=== PATIENT | male | born 1945 | race Hispanic/Latino ===

== ENCOUNTER 2016-11-11 06:36 | Observation (INO) | payer MEDICARE ==
[2016-11-11] MEDS ORDERED: NACL 0.9% 500 ML 500 ML IV SCH (07:00)
[2016-11-11 07:21] LABS: Basophils % (Auto) 0.5 % (0.0-1.8); Hematocrit 45.2 % (35.5-45.6); Mean Corpuscular HGB Conc 33 % (32-34); Mean Corpuscular Hemoglobin 30 pg (28-32); Mean Corpuscular Volume 92 fl (84-94); Platelet Count 171 K/mm3 (140-440); Red Blood Count 4.92 M/mm3 (3.65-5.03); Red Cell Distribution Width 13.5 % (13.2-15.2)
[2016-11-11 07:33] LABS: INR 0.97 (0.87-1.13)
[2016-11-11 07:42] LABS: Anion Gap 15 mmol/L; Blood Urea Nitrogen 16 mg/dL (9-20); Calcium 9.1 mg/dL (8.4-10.2); Carbon Dioxide 30 mmol/L (22-30); Chloride 94.1 mmol/L (98-107); Glucose 97 mg/dL (75-100); Potassium 4.1 mmol/L (3.6-5.0); Sodium 135 mmol/L (137-145)
[2016-11-11] MEDS ORDERED: HEPARIN/NS 5000 UNIT/500ML(CATH LAB) 1,000 ML IR ONE (09:31)
[2016-11-11] MEDS ORDERED: CALAN ONE (09:31)
[2016-11-11] MEDS ORDERED: NITROGLYCERIN SYRINGE 3 ML ONE (09:31)
[2016-11-11] MEDS ORDERED: HEPARIN 10,000 UNITS/10 ML ONE ×2 (09:33→10:31)
[2016-11-11] MEDS ORDERED: XYLOCAINE 2% INFILTRATI ONE (09:34)
[2016-11-11] MEDS: VERSED ONE ×2 (09:43→09:59)
[2016-11-11] MEDS: SUBLIMAZE ONE ×2 (09:43→09:59)
[2016-11-11] MEDS: HEPARIN 10,000 UNITS/10 ML ONE ×3 (09:44→11:02)
[2016-11-11] MEDS: XYLOCAINE 2% INFILTRATI ONE ×2 (09:44→10:03)
[2016-11-11] MEDS ORDERED: HEPARIN/NS 5000 UNIT/500ML(CATH LAB) 500 ML IR ONE (10:07)
[2016-11-11] MEDS ORDERED: EFFIENT PO ONE (10:22)
[2016-11-11] MEDS ORDERED: ALUM-MAG HYDROX-SIMETH 200-200-20MG/5ML ONE (10:22)
[2016-11-11] MEDS ORDERED: ZOFRAN IV PRN (10:39)
--- NOTE | 2016-11-11 10:48 | Event Note ---
Date: 11/11/16 Outpatient cardiac cath followed by PCI of the mid circ. A 4.5mm BM stent deployed. We will admit overnight only for post PCI observation. Discharge tomorrow am. On discharge, add Effient 10mg and Imdur 30mg to regimen. Due to baseline bradycardia, we will hold off on betablocker at this time.
[2016-11-11] MEDS ORDERED: ULTRAM PO PRN (11:00)
[2016-11-11] MEDS ORDERED: NACL 0.9% 1000 ML 1,000 ML IV SCH (11:00)
--- NOTE | 2016-11-11 11:03 | Cardiac Catherization Report ---
CARDIAC CATHETERIZATION AND CORONARY ANGIOPLASTY REASON FOR PROCEDURE: Unstable angina, abnormal thallium stress test, abnormal coronary CTA. PROCEDURE: The patient was prepped and draped in a sterile fashion after informed consent. The right radial artery was entered using Seldinger technique followed by placement of a 6-Bulgarian hydrophilic sheath. Routine radial cocktail was administered via the sheath. A #3.5 left Mary catheter was used for left coronary angiography. A #4 right Mary was used for right coronary angiography. CORONARY ANGIOGRAPHY: The angiograms were reviewed. The left main coronary artery contained mild irregularities. The left anterior descending artery contained mild to moderate coronary calcification in its proximal segment, associated with diffuse mild atherosclerosis. Following a medium sized mid diagonal branch, there was a 30-40% stenosis of the mid LAD. The circumflex artery was a large caliber vessel, with mild diffuse ectasia. This vessel contained a focal, 75-80% stenosis of its mid segment. The right coronary artery was dominant. This vessel contained an eccentric, 30-40% irregular plaque stenosis of its mid segment. CORONARY ANGIOPLASTY: After review of the angiograms, ad hoc angioplasty and stenting of the mid circumflex artery was recommended. We selected a #3.5 left Mary guiding catheter and advanced to the left coronary ostium. A 0.014 inch [employer] 50 guidewire was then directed into the circumflex, across the stenotic segment. In the primary stenting maneuver, we deployed a 4.5 x 13 mm Ultra bare metal stent to cover the entire lesional segment. The stent was deployed to optimal pressures. Following stenting, the catheters and the wires were removed. Post-intervention angiograms revealed an excellent angiographic result, 0 residual stenosis at the treated site, and maintenance of excellent KIMI 3 flow down the circumflex. The procedure was well tolerated by the patient and there were no complications. The catheters and the wires were removed, hemostasis achieved at the radial site using manual compression. He was returned to the postprocedure unit in stable condition. There were no complications. CONCLUSION: 1. Multivessel coronary artery disease, with severe stenosis of the mid circumflex artery. 2. Successful ad hoc angioplasty and stenting of the mid circumflex, excellent angiographic results following deployment of a 4.5 mm bare metal stent. The patient will be recommended for aggressive risk factor modification and medical therapy for the nonobstructive disease of the LAD and circumflex systems. Echocardiography will be recommended for left ventricular function and valvular function assessment. JOB# [id number] ERUM/GRICEL
[2016-11-11] MEDS ORDERED: NACL 0.9% 1000 ML 1,000 ML ONE (12:22)
[2016-11-11] MEDS: IMDUR PO SCH (12:31)
--- NOTE | 2016-11-11 15:57 | Admit Criteria Form ---
Admission Criteria Documentation: TELEMETRY CARE Telemetry Admission Guidelines (Place 'X' for any and all applicable criteria): Admission to telemetry [A] may be indicated for ANY ONE of the following(1)(2)(3 )(4)(5): [ X]I. Cardiac disease, including ANY ONE of the following (9)(10)(11)(12)( 13): [ ]a) Postacute [place] [ ]b) Low-risk patients with ST-segment elevation [place] who have undergone successful percutaneous coronary intervention [ ]c) Unstable angina [ ]d) Suspected [place] (until it is ruled out) [ ]e) Post cardiac surgery (first 48 to 72 hours unless complications occur) [ ]f) Acute arrhythmias (including significant tachycardia or bradycardia) [B] [ ]g) Firing of an implantable cardioverter defibrillator [C] [ ]h) Suspected pacemaker or implantable cardioverter defibrillator malfunction (10) [ ]i) New administration or adjustment of an antiarrhythmic drug [D ] [ ]j) Child admitted for acute congestive heart failure [ ]j) Long QT syndrome [ ]k) Advanced heart block (eg, second-degree Mobitz type II, third- degree heart block) [ ]l) Acute myocarditis or pericarditis [X ]m) Short-term (ambulatory or inpatient) monitoring after a cardiac procedure as indicated by ANY ONE of the following [E]: [ ]i) Electrophysiologic studies [X ]ii) Percutaneous coronary intervention with stent placement [ ]iii) Pacemaker placement with cardiac conduction defect [ ]iv) Implantable cardiac defibrillator placement [ ]II. Drug overdose or poisoning with substance that causes arrhythmias or QT prolongation (eg, phenothiazines, sympathomimetic agents, cyclic antidepressants, digitalis, antiarrhythmic drugs)(15) [ ]III. Short-term (ambulatory or inpatient) monitoring after therapeutic or diagnostic procedure requiring conscious sedation or anesthesia (eg, endoscopy, elective cardioversion) [ ]IV. Acute cerebrovascular even[F](18) [ ]V. Massive blood transfusion (eg, at least 10 units of packed red blood cells in 24 hours) [ ]. Variceal bleeding after endoscopy, sclerotherapy, or IV vasopressin [ ]VII. Uncorrected electrolyte abnormalities associated with an increased risk of dangerous arrhythmia [G]; examples include [ ]a) Hyperkalemia with attributable ECG changes [ ]b) Potassium greater than 6.5 mmol/L (mEq/L) in a patient without history of chronic renal disease [ ]c) Prolonged QT attributed to hypokalemia, hypomagnesemia, or hypocalcemia [ ]VIII.Unexplained syncope or other neurologic event suspected of being due to arrhythmia due to a finding that increases risk; examples include(19)(20)(21): [ ]a) High-risk ECG findings (eg, bifascicular block, bradycardia, abnormal QT interval, ventricular pre- excitation) [ ]b) History of previous syncope due to arrhythmia [ ]c) Abnormal ventricular function (eg, reduced ejection fraction ) [ ]d) Exertional or supine syncope [ ]e) Concerning syncope characteristics (eg, sudden loss of consciousness without prodrome) [ ]f) Family history of sudden [ ]g) Use of arrhythmogenic medication [ ]h) Suspected cardiac ischemia [ ]i) Known channelopathy (eg, long QT syndrome, Brugada syndrome, or catecholaminergic paroxysmal ventricular tachycardia) [ ]j) Known structural heart disease (eg, hypertrophic cardiomyopathy , severe valvular disease) [ ]k) Palpitations preceding syncope The original [facility] content created by [facility] has been revised. The portions of the content which have been revised are identified through the use of italic text or in bold, and [employer] [email or web address] has neither reviewed nor approved the modified material. All other unmodified content is copyright [facility]. Please see references footnoted in the original [facility] edition 2016 Admission Criteria Met: Yes
[2016-11-11] MEDS ORDERED: AMBIEN PO PRN (22:00)
[2016-11-11] MEDS ORDERED: NON-FORMULARY (Rosuvastatin Calcium [Crestor] 40 MG) PO SCH (22:00)
[2016-11-12 07:27] LABS: Basophils % (Auto) 0.4 % (0.0-1.8); Eosinophils % (Auto) 2.3 % (0.0-4.3); Hematocrit 38.1 % (35.5-45.6); Hemoglobin 12.9 gm/dl (11.8-15.2); Mean Corpuscular HGB Conc 34 % (32-34); Mean Corpuscular Hemoglobin 31 pg (28-32); Mean Corpuscular Volume 91 fl (84-94); Platelet Count 147 K/mm3 (140-440); Red Cell Distribution Width 12.9 % (13.2-15.2); White Blood Count 7.3 K/mm3 (4.5-11.0)
[2016-11-12 07:40] LABS: Creatine Kinase MB 3.6 ng/mL (0.0-4.0)
[2016-11-12 07:43] LABS: Anion Gap 17 mmol/L; BUN/Creatinine Ratio 16.25; Blood Urea Nitrogen 13 mg/dL (9-20); Calcium 8.1 mg/dL (8.4-10.2); Carbon Dioxide 24 mmol/L (22-30); Chloride 97.8 mmol/L (98-107); Creatine Kinase 129 units/L (55-170); Glucose 95 mg/dL (75-100); Potassium 3.6 mmol/L (3.6-5.0); Sodium 135 mmol/L (137-145)
--- NOTE | 2016-11-12 08:58 | XRay Report ---
AP CHEST: AP view of the chest demonstrates a normal mediastinal and cardiac contour with clear lungs and normal bony and soft tissue structures. IMPRESSION: Normal AP chest.
[2016-11-12 09:00] VITALS: BP 115/69
[2016-11-12] MEDS ORDERED: BABY ASPIRIN PO SCH (10:00)
[2016-11-12] MEDS ORDERED: EFFIENT PO SCH (10:00)
[2016-11-12] MEDS ORDERED: MAXZIDE-25 PO SCH (10:00)
[2016-11-12] MEDS: IMDUR PO SCH (10:17)
--- NOTE | 2016-11-12 10:19 | Short Stay Summary ---
Short Stay Documentation Date of service: 11/12/16 - History H&P: obtained from office - Allergies and Medications Current Medications: Allergies No Known Allergies Allergy (Verified 11/11/16 06:57) Home Medications Medication Instructions Recorded Confirmed Last Taken Type Aspirin EC [Aspirin Enteric Coated 81 mg PO QDAY 11/11/16 11/11/16 11/10/16 History TAB] Rosuvastatin Calcium [Crestor] 40 mg PO QHS 11/11/16 11/11/16 11/10/16 History Triamterene/Hydrochlorothiazid 1 tab PO QDAY 11/11/16 11/11/16 11/11/16 05:30 History [Triamterene-Hctz 37.5-25 mg Tb] Active Medications Aspirin (Baby Aspirin) 81 mg PO QDAY [facility] Atorvastatin Calcium (Lipitor) 80 mg PO QHS [facility] Last Admin: 11/11/16 21:48 Dose: 80 mg Isosorbide Mononitrate (Imdur) 30 mg PO QDAY [facility] Last Admin: 11/11/16 12:31 Dose: 30 mg Ondansetron HCl (Zofran) 4 mg IV Q8H PRN PRN Reason: N/V unrelieved by Reglan Prasugrel (Effient) 10 mg PO QDAY SANYA Tramadol HCl (Ultram) 50 mg PO Q4H PRN PRN Reason: Pain, Mild (1-3) Triamterene/HCTZ (Maxzide-25) 1 each PO QDAY SANYA Zolpidem Tartrate (Ambien) 5 mg PO QHS PRN PRN Reason: Sleep - Physical exam General appearance: no acute distress HEENT: PERRLA Lungs: Clear to auscultation Heart: Normal S1, Normal S2 - Brief post op/procedure progress note Procedure: Outpatient cardiac cath followed by PCI of the mid circ. A 4.5mm BM stent deployed. - Hospital course Hospital course: Stable overnight observation. Effient 10mg and Imdur 30mg added to home regimen. Due to baseline bradycardia, we will hold off on betablocker at this time. - Disposition Condition at discharge: Good Disposition: DISCHARGED TO HOME OR SELFCARE Short Stay Discharge Plan Activity: advance as tolerated, other (POST CARDIAC CATH INSTRUCTIONS) Diet: low fat, low cholesterol, low salt Follow up with: VIMAL DESAI MD [Primary Care Provider] - 7 Days ESTHER CASTRO MD [Staff Physician] - 7 Days Forms: CardCat PCI D/C Instructions Prescriptions: ISOSORBIDE MONOnitrate [Imdur ER] 30 mg PO QDAY #30 tablet Prasugrel [Effient] 10 mg PO QDAY #30 tablet
== END 2016-11-12 11:04 | disposition home or self-care (01) ==
LOC: OPU 06:36 → 4A 09:00
PROVIDERS: ADMIT Internal Medicine; ATTEND Internal Medicine Cardiovascular Disease
DX: I20.0 Unstable angina (principal); R93.8 Abnormal findings on diagnostic imaging of other specified body structures; R94.39 Abnormal result of other cardiovascular function study; Z98.61 Coronary angioplasty status
CPT/HCPCS: 36415; 71010; 80048; 82550; 82553; 84484; 85025; 85347; 85610; 85730; 92928; 93005; 93010; 93458; A9270; C1769; C1876; C1887; C1894; G0378; J1644; J2250; J3010; J7030; J7040; Q9967